=== PATIENT | male | born 1955 | race Caucasian/White ===

== ENCOUNTER 2017-02-09 19:36 | Emergency (ER) | payer OTHER ==
[2017-02-09 22:02] LABS: HEMOGLOBIN 17.1 gm/dl (14.0-17.5); RED BLOOD COUNT 5.52 M/UL (4.20-5.50); WHITE BLOOD COUNT 8.3 K/UL (4.5-11.0)
[2017-02-09 22:20] LABS: BUN/CREATININE RATIO 12 (0-10)
== END 2017-02-10 01:30 | disposition home or self-care (01) ==
LOC: ER1 19:36
PROVIDERS: Physician Assistant
DX: K21.9 Gastro-esophageal reflux disease without esophagitis (principal); E11.9 Type 2 diabetes mellitus without complications; I10 Essential (primary) hypertension; Z79.84 Long term (current) use of oral hypoglycemic drugs; Z79.899 Other long term (current) drug therapy
CPT/HCPCS: 36415; 71010; 80053; 82550; 82553; 83690; 83874; 84484; 85025; 93005; 96374; 99284; C9113; J7030; J7050; Q9962